=== PATIENT | female | born 1970 | race Caucasian/White ===

== ENCOUNTER 2019-02-08 01:03 | Emergency (ER) | payer MEDICAID ==
[~2019-02-08] VITALS: Ht 162.6 cm; Wt 118.0 kg
[2019-02-08] MEDS ORDERED: METOPROLOL TARTRATE 50MG TABLET PO ONE (01:45)
[2019-02-08 01:59] LABS: BASOPHILS % 0.8 % (0.0-2.0); HEMATOCRIT. 43.5 % (36.0-48.0); LYMPHOCYTES % 23.5 % (20.0-50.0); MEAN CORPUSCULAR HEMOGLOBIN 30.7 pg (28.0-32.0); MEAN PLATELET VOLUME 9.4 fl (7.4-10.4); MONOCYTES % 8.1 % (2.0-8.0); NEUTROPHILS % 64.6 % (40.0-76.0); PLATELET 269 x1000/uL (130-400); RED BLOOD CELL COUNT 4.89 mill/uL (4.2-5.4); RED CELL DISTRIBUTION WIDTH 13.1 % (11.6-14.6)
[2019-02-08 02:06] LABS: CHLORIDE 108 mEq/L (98-107)
[2019-02-08 02:48] LABS: *BARBITURATES SCREEN URINE NEGATIVE (NEGATIVE); *BENZODIAZEPINES SCREEN URINE NEGATIVE (NEGATIVE); *COCAINE SCREEN URINE NEGATIVE (NEGATIVE); METHADONE URINE SCREEN NEGATIVE (NEGATIVE); OPIATES URINE SCREEN NEGATIVE (NEGATIVE); PHENCYCLIDINE URINE SCREEN NEGATIVE (NEGATIVE)
[2019-02-08 02:49] LABS: *AMPHETAMINES SCREEN URINE NEGATIVE (NEGATIVE); CANNABINOID URINE SCREEN NEGATIVE (NEGATIVE)
[2019-02-08 05:27] VITALS: BP 141/96
== END 2019-02-08 05:29 | disposition home or self-care (01) ==
LOC: ER 01:03
DX: R00.2 Palpitations (principal); R07.89 Other chest pain; R00.0 Tachycardia, unspecified; G25.0 Essential tremor; Z90.49 Acquired absence of other specified parts of digestive tract; Z88.2 Allergy status to sulfonamides
CPT/HCPCS: 36415; 71045; 80053; 80305; 83880; 84443; 84484; 85025; 93005; 99284; Z7610